=== PATIENT | male | born 1940 ===

== ENCOUNTER → 2016-10-09 | Outpatient (CLI) | payer OTHER ==
[2016-10-09 13:52] LABS: CHOLESTEROL/HDL RATIO 2.7
[2016-10-09 16:52] LABS: LYME DISEASE AB IGG NEG (NEG)
[2016-10-09 16:55] LABS: LYME DISEASE AB IGM POS (NEG)
[2016-10-11 10:33] LABS: 18KDIGG BAND REACTIVE (NONREACTIVE); 23KDIGG BAND NONREACTIVE (NONREACTIVE); 23KDIGM BAND REACTIVE (NONREACTIVE); 28KDIGG BAND NONREACTIVE (NONREACTIVE); 30KDIGG BAND NONREACTIVE (NONREACTIVE); 39KDIGG BAND NONREACTIVE (NONREACTIVE); 39KDIGM BAND NONREACTIVE (NONREACTIVE); 41KDIGG BAND NONREACTIVE (NONREACTIVE); 41KDIGM BAND NONREACTIVE (NONREACTIVE); 45KDIGG BAND NONREACTIVE (NONREACTIVE); 58KDIGG BAND NONREACTIVE (NONREACTIVE); 66KDIGG BAND REACTIVE (NONREACTIVE); 93KDIGG BAND NONREACTIVE (NONREACTIVE)
== END | disposition home or self-care (01) ==
LOC: C.LABMFLN 11:02
PROVIDERS: ATTEND Family Medicine
DX: A69.20 Lyme disease, unspecified (principal); E78.00 Pure hypercholesterolemia, unspecified

== ENCOUNTER → 2016-10-27 | Outpatient (CLI) | payer OTHER | END | disposition home or self-care (01) | LOC: C.PATHSPEC 10:16 | PROVIDERS: ATTEND Family Medicine | DX: L72.0 Epidermal cyst (principal) ==